=== PATIENT | female | born 1985 | race Caucasian/White ===

== ENCOUNTER 2024-11-08 14:40 | Outpatient (CLI) | payer BC, SELFPAY ==
[2024-11-09 00:46] LABS: Chlamydia DNA Amplified* NOT DETECTED (No Detected); GC DNA Amplified* NOT DETECTED (No Detected)
[2024-11-10 06:30] LABS: HPV Source Cervix; HPV, High Risk by TMA Not Detected
[2024-11-25 14:21] LABS: Pap Test Reviewed by Path Done
== END 2024-11-08 14:41 | disposition home or self-care (01) ==
PROVIDERS: Visit Provider Physician Assistant Medical
DX: R73.03 Prediabetes (principal); R51.9 Headache, unspecified; R53.83 Other fatigue; Z11.3 Encounter for screening for infections with a predominantly sexual mode of transmission; Z12.4 Encounter for screening for malignant neoplasm of cervix
CPT/HCPCS: 87491; 87591; 87624; 87625; 88141; 88142

== ENCOUNTER 2024-11-11 09:11 | Outpatient (CLI) | payer BC, SELFPAY | END 2024-11-11 09:12 | disposition home or self-care (01) | LOC: NFLDREF 11-15 19:14 | PROVIDERS: Visit Provider Physician Assistant Medical | DX: R73.03 Prediabetes (principal); R53.83 Other fatigue; Z13.6 Encounter for screening for cardiovascular disorders; Z13.21 Encounter for screening for nutritional disorder; Z13.0 Encounter for screening for diseases of the blood and blood-forming organs and certain disorders involving the immune mechanism; Z13.29 Encounter for screening for other suspected endocrine disorder | CPT/HCPCS: 80053; 80061; 82306; 82728; 84443 ==

== ENCOUNTER 2025-01-13 15:19 | Outpatient (CLI) | payer BC, SELFPAY | END 2025-01-13 15:20 | disposition home or self-care (01) | LOC: LKVREF 15:20 | PROVIDERS: Visit Provider Physician Assistant Medical | DX: R79.89 Other specified abnormal findings of blood chemistry (principal) | CPT/HCPCS: 80076 ==

== ENCOUNTER 2025-02-15 18:06 | Outpatient (CLI) | payer BC, SELFPAY | END 2025-02-15 18:07 | disposition home or self-care (01) | DX: R10.13 Epigastric pain (principal) | CPT/HCPCS: 80053; 83690 ==

== ENCOUNTER 2025-05-12 07:30 | Outpatient (RCR) | payer BC, SELFPAY ==
--- NOTE | 2025-03-24 08:51 | OT.OPOE ---
OT Outpatient Ortho Eval OT Outpatient Ortho Eval* Start: 03/24/25 07:28 Freq: Status: Active Protocol: Document 03/24/25 07:28 OSKAR (Rec: 03/24/25 08:49 DELONNoni [id number]) E-signed By Alice Mooney, OTR/L, CLT OT OP Ortho Eval Details Complexity Complexity Medium Insurance Information Insurance Blue Cross/Blue Shield Information Other Insurance [facility] History/Precautions Current Condition/Medical Diagnosis Referring Provider Dr. Jose Roberto Lind Medical Diagnoses M77.8 Other enthesopathies, not elsewhere classified ( Tendinitis of right triceps) M77.11 Lateral epicondylitis, right elbow G56.01 R UE Carpal Tunnel Syndrome Treatment Diagnosis Pain in R elbow, M25.521 Stiffness in R elbow, M25.621 Paresthesia R20.2 (R UE, median and ulnar nerve) Date of Onset December 2024 Other Conditions Medications: celecoxib 100 mg PO BID 60 caps 1RF (NEW, prescribed by Ortho doctor on 03/15/25) acetaminophen 1,000 mg PO Q6H PRN albuterol sulfate 90 mcg/actuation 2 puffs inhalation Q4-6H PRN bupropion HCl SR (Wellbutrin SR) 100 mg PO QAM ibuprofen 800 mg PO Q6H PRN metronidazole 0.75% applic topical DAILY phentermine 18.75 mg (1/2 x 37.5 mg) PO QDAY pregabalin 100 mg PO BID sulfacetamide sodium-sulfur 8-4 % topical triamcinolone acetonide 0.025% 1 applic topical QDAY Carpal tunnel syndrome, right (Acute) G56.01 - Carpal tunnel syndrome, right upper limb (ICD- 10) Tendinitis of right triceps (Acute) M77.8 - Other enthesopathies, not elsewhere classified (ICD-10) Lateral epicondylitis, right elbow (Acute) M77.11 - Lateral epicondylitis, right elbow (ICD-10) Chronic headaches (Acute) [facility]; chronic, Lyrica R51.9 - Headache, unspecified (ICD-10) G89.29 - Other chronic pain (ICD-10) Depression (Acute) [id number] bupropion 100 mg SR daily F32.A - Depression, unspecified (ICD-10) Fatigue (Acute) R53.83 - Other fatigue (ICD-10) Obesity (Acute) 11/08/2024- weight 231 lb. Start phentermine 01/13/2025-weight 223 lb. Continue phentermine 18.75 mg daily. 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 She presented to Ortho clinic on for evaluation right elbow pain which 1st developed in December 2024. She denies any history of injury. Since then, she has experienced progressively worsening elbow pain which she localizes to both the lateral & medial elbow (with lateral worse than medial) and posterior aspects of her R elbow (triceps tendon). She describes it as a throbbing and burning pain that is aggravated by all activities, generally stiff and sore upon waking up and worse as the day goes from everyday tasks . Treatment has consisted of using ice and taking ibuprofen or Tylenol on an as-needed basis. She has also tried massaging and home exercises for lateral epicondylitis. However, symptoms have continued to persist. Additionally, she has a history of numbness and tingling in her R dominant hand. The symptoms are present intermittently and will frequently wake her at night. She reportedly underwent EMG nerve conduction studies last year which confirmed diagnosis of right carpal tunnel syndrome. She has tried wearing a wrist brace, which has not provided significant improvement of her symptoms. Ortho provider wrote a script for celecoxib 100 mg PO BID 60 caps 1RF as of 03/15/25 but patient does not notice a significant improvement in her symptoms/pain levels with this added medication. Pain Assessment Pain Pain Yes Pain Comments 8/10 at the lateral R (dominant) elbow with a burning sensation at the R triceps insertion of the elbow 6/10 R UE medial Elbow 4-5/10 hagen side of the R wrist, more of a burning sensation Hand Pinch/City Controller Strength Hand Pinch/City Controller Strength Hand Pinch/City Controller Left Hand,Right Hand Strength Left Hand City Controller Strength 75 Position 1 in Elbow Flexion (lbs) City Controller Strength 70 Position 2 in Elbow Extension (lbs) Lateral Pinch 16 Strength (lbs) Three Point Pinch ( 16 lbs) Right Hand City Controller Strength 55 Position 1 in Elbow Flexion (lbs) City Controller Strength 0 Position 2 in Elbow Extension (lbs) Lateral Pinch 13 Strength (lbs) Three Point Pinch ( 14 lbs) Comments Comments Patient was unable to hold the dynamometer in the R UE with arm straight out, very painful Arm extended body welder strength was 0 Upper Extremity Special Tests Elbow Cozens Test Positive Right Tenosynovitis Wrist Finklestein Positive Right Test Median Nerve-Carpal Tunnel Wrist Phalen Test Positive Right Wrist Tinel Test Positive Right Ulnar Nerve Froment's Sign Positive Right Upper Extremity Special Tests Comments Comments Special Tests Maudsley?s test?= Resisted third digit extension (+ on the R UE) Cozen?s test?= Resisted wrist extension with radial deviation and full pronation (+ on the R UE) Chair lift test?= Lifting the back of a chair with a three-finger pinch (thumb, index long fingers) and the elbow fully extended (+ on the R UE) OT Problems Problems Problems Decreased Strength,Pain,Sensory Sensitivity,Lifting, Gripping,Pinching Problems Comments Burning sensation (feels hot along the back of the R arm, above the elbow) Other Problems Writing,Opening Containers,Dressing,Computer,Fasteners, Sleeping Patient Potential Good Assessment Assessment Assessment Patient is an excellent candidate for therapy, she was pleasant, alert, orientated, asked great questions in session, was an active listener to information presented to her and showed signs of motivation/ willingness to follow the presented protocol in POC. PLAN: lateral & Medial epicondylitis protocol, as well as carpal tunnel (R wrist) and triceps tendonitis. Therapist will treat patient's R (dominant) UE with Ultrasound, Ionto, Manual treatment (YARY), as well as develop an individualized home exercise program that progresses as patient is able to take on increased challenge and pain symptoms decrease. Therapist will provide patient education on biomechanics/ergonometric/ activity modifications to decrease flare-ups. Education topics discussed in todays session included: Explained to patient that relief of pain and recovery of the muscle and tendon strength can often take 6 months or even longer. Activity modifications: Minimize activities that involve repetitive hand and wrist motions, such as typing, gripping, or lifting. If you need to do receptive tasks, take breaks and stretch the arm out. Ice cup massaging 3-4x per day. Very important to be diligent on your home exercise program of stretching, icing and strengthening. This will include scapular stabilization exercises. Occupational Therapy Treatment Plan - OP Potential Rehabilitation Good Potential Barriers Barriers to goal Symptoms are now chronic, 3+ months attainment Patient has multiple problems at the R UE (triceps, lateral and medial epicondylitis, carpal tunnel and possible cubital tunnel as she describes burning and tingling in the little finger/ring finger which is the ulnar nerve). Set Goals Goals Set with Yes Patient Goals Goals 1. Patient will verbalize 3 activity modifications to decrease abusive/overloading of the tendons. - progressing, continue 2. Pt will demonstrate pain-free body welder and pinch strength comparable to the uninvolved side in order to improve functional grasp, hold, reach, and lifting ability needed to complete self-care, leisure tasks, and work activities. -progressing, continue 3. Through activity participation in skilled therapy sessions, and consistency in performing a customized HEP, patient will improve capacity of tendons and muscles to manage load in order to have less pain with ADLs, work, leisure activities and IADLs. -progressing, continue 4. From EVAL score on The Upper Extremity Functional Index (UEFI) patient will have a change in score by >9 points in order to show significant change in UE function. Target Date 12 weeks Treatment Plan Treatment Plan Evaluation,Edema Control,Iontophoresis with Dexamethasone Sodium Phosphate 1 mL (4mg per mL),Joint Mobilization,Manual Therapy,Ultrasound,Therapeutic Exercise,Therapeutic Activities,Self Care/Home Management,Education Expected Frequency 1-2x Week Expected Duration 12 Home Program Home Program Home Program Initiated Certification Certification Statement I Certify That: Therapy Services Provided,Therapy Plan Established, Therapy Plan Reviewed Certification Information Clinic ID # [id number] Initial 03/24/25 Certification Date Recertification Due 06/22/25 Date Provider Signature Yes Required Provider Signature POC & Medical Necessity Shows Agreement With Physician NPI Number Write NPI# Here Physician Comment/ Comment or Changes Change Physician Signature Please Sign/Date Here & Date Requested
== END 2025-07-14 14:53 | disposition home or self-care (01) ==
PROVIDERS: PCP Physician Assistant Medical; Visit Provider Orthopaedic Surgery
DX: M77.8 Other enthesopathies, not elsewhere classified (principal); M77.11 Lateral epicondylitis, right elbow; G56.01 Carpal tunnel syndrome, right upper limb; Z51.89 Encounter for other specified aftercare
CPT/HCPCS: 97035; 97110; 97140; 97166; X5282

== ENCOUNTER 2025-06-27 10:04 | Emergency (ER) | payer BC, SELFPAY ==
--- OUTSIDE RECORDS SUMMARY | 2025-06-27 10:17 | XMS_ITS | Clinical Summary ---
Author Organization [facility] Address [address] [place] [address] Care Team Providers Care Chronic Manager Name Role Phone Latoya, Primary Care Provider Unavailabl e Allergies No known active allergies Medications MICROGESTIN 1.5 ORAL i tab daily Active albuterol HFA (PROAIR HFA) 90 mcg/actuation inhalerIndicatio ns:Sinusitis Inhale 2 Puffs by mouth every 4 hours if needed. 1 Inhaler 0 03/23/2014 Active Social History Tobacco Use Types Packs/Day Years Used Date Smoking Tobacco: Never Smokeless Tobacco: Never Alcohol Use Standard Drinks/Week Comments No 0 (1 standard drink = 0.6 oz pur e alcohol) Comments Unknown Sex and Gender Information Value Date Recorded Sex Assigned at Not on file Legal Sex Female 7:29 AM CLINICAL MENTAL HEALTH COUNSELOR Gender Identity Not on file Sexual Orientation Not on file Obstetrics History Para Term AB IAB SAB Ectopic Multiple Livin g Live Births 1 Date Outcome GA Total Labor Labor/2nd/3rd Weight Sex Type Anes PTL Laly A1 A5 Name Clin Last Filed Vital Signs Vital Sign Reading Time Taken Comments Blood Pressure 116/78 03/23/2014 10:59 AM CDT Pulse 88 03/23/2014 10:59 AM CDT Temperature 36.3 C (97.4 F) 03/23/2014 10:59 AM CDT Respiratory Rate 18 03/23/2014 10:59 AM CDT Oxygen Saturation 98% 03/23/2014 10:59 AM CDT Inhaled Oxygen Concentration - - Weight 95.7 kg (211 lb) 03/23/2014 10:59 AM CDT Height 172.7 cm (5' 7.99) 03/23/2014 10:59 AM C DT Body Mass Index 32.09 03/23/2014 10:59 AM CDT Plan of Treatment Health Maintenance Due Date Last Done Comments Tetanus booster 11/14/1995 Depression screening for age 12+ 1996 HIV for age 15-65 11/14/1999 BMI (ht and wt on same day) for age 18+ 2002 Hepatitis C screening for ag e 18-79 2002 Hepatitis B series for 19+ ( 1 of 3 - 19+ 3-dose series) 11/14/2003 Pap test for age 21-65 2005 HPV series for age 9-45 (1 - 3-dose SCDM series) 11/14/2011 Influenza Vaccine (#1) 2025 RSV vaccine for adults or (1 - 1-dose 75+ series) 11/14/2059 Pneumococcal series for age 6-49 Aged Out No longer eligible based on patient's age to complete this topic [place] [address] [place] [address] Care Teams Chronic Manager Relationship Specialty Start Date End Date None, Dr Rivera PCP - General Unknown Physician Specialty 11/22/13
--- OUTSIDE RECORDS SUMMARY | 2025-06-27 10:17 | XMS_ITS | Encounter Summary ---
Author Organization [facility] Address [address] [place] [address] Care Team Providers Care Nuclear Powerplant Mechanic Helper Name Role Phone Scar Quinteros MD Primary Care Provide r Frw, None Unavailable Unavailable Tapan Marie MD Unavailable Unavailable Lola Anaya MD Primary Care Provider + [facility]- Primary Care Provider Encounter Details Date Type Department Care Team (Late st Contact Info) Description 04/01/2012 Records - [facility] - [address] [phone] Provider, Historical Social History Tobacco Use Types Packs/Day Years Used Date Smoking Tobacco: Never Alcohol Use Standard Drinks/Week Comments Yes 0 (1 standard drink = 0.6 oz pur e alcohol) rare Comments No Sex and Gender Information Value Date Recorded Sex Assigned at Not on file Legal Sex Female 4:14 AM INSPECTOR HOT FORGINGS Gender Identity Not on file Sexual Orientation Not on file 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 Not on file Not on file Not on muna e documented as of this encounter Plan of Treatment Not on file documented as of this encounter Visit Diagnoses Not on filedocumented in this encounter Care Teams Nuclear Powerplant Mechanic Helper Relationship Specialty Start Date End Date Scar Quinteros MD PCP - General 08/26/00 07/21/17 Frw, None PCP - Obstetrics/Gynecology 08/26/00 Tapan Marei MD XXX RETIRED XXX [address] [place] [address] PCP - Orthopaedics 08/26/00 Lola Anaya MD XXX RETIRED XXX [address] [place] [address] PCP - General physical therapy aid 07/22/17 06/09/19 [facility]- [address], [place] [address] PCP - General 06/10/19 documented as of this encounter
--- OUTSIDE RECORDS SUMMARY | 2025-06-27 10:17 | XMS_ITS | Encounter Summary ---
Author Organization [facility] Address [address] [address] Care Team Providers Care Director Validation Name Role Phone Unassigned, Provider Primary Care Provider Unava ilable Encounter Details Date Type Department Care Team (Late st Contact Info) Description 04/03/2012 Consent for Procedure/Treatme [facility] Operating Room [address] [place] [address] Cullen Matthew MD [address] [facility] [address] [place] [address] CONSENT FOR ANESTHESIA Social History Tobacco Use Types Packs/Day Years Used Date Smoking Tobacco: Never Smokeless Tobacco: Never Alcohol Use Standard Drinks/Week Comments Yes 0 (1 standard drink = 0.6 oz pur e alcohol) 1-2 month Comments Unknown Sex and Gender Information Value Date Recorded Sex Assigned at Not on file Legal Sex Female 6:30 AM CDT Gender Identity Not on file Sexual Orientation Not on file documented as of this encounter Progress Notes * Cullen Matthew MD - 04/03/2012 12:00 AM CDT documented in this encounter Plan of Treatment Not on file documented as of this encounter Visit Diagnoses Not on filedocumented in this encounter Care Teams Director Validation Relationship Specialty Start Date End Date Unassigned, Provider [address] [place] [address] PCP - General Unknown Physician Specialty 04/03/12 documented as of this encounter
--- OUTSIDE RECORDS SUMMARY | 2025-06-27 10:17 | XMS_ITS | Clinical Summary ---
Author Organization [facility] Address [address] [place] [address] Care Team Providers Care Electrical Instrumentation Technician Name Role Phone Frw, None Unavailable Unavailable Tapan Marie MD Unavailable Unavailable [facility]- Primary Care Provider Allergies No known active allergies Medications cyclobenzaprine (FLEXERIL) 10 MG tablet Take 1 tablet (10 mg) by mouth 3 times daily as needed for muscle spasms 12 tablet 07/22/2017 Active Active Problems Problem Noted Date Diagnosed Date Sprain of lumbar region 01/20/2004 Overview (01/20/2004): 01/06/2004 LB strain with Lt LE radicular pain: WC @ [facility] Displacement of lumbar inter vertebral disc without myelopathy 08/17/2002 Overview (02/03/2004): L5-S1 HNP to Lt, L4-5 central HNP Irregular menses Overview (09/29/2008): Dr. Malone Resolved Problems Problem Noted Date Diagnosed Date Resolved Date Chorioamnionitis 06/29/2014 06/13/2016 Delivery normal 06/29/2014 06/13/2016 Immunizations Immunization Administration Dates Next Due DT (PEDS <7y) 03/23/1997 Historical DTP/aP 03/04/1990,02/02/1988,05/04/19 85,02/01/1985,01/02/1985 MMR (MMRII) 03/23/1997,02/23/1986 OPV, trivalent, live 03/04/1990,02/02/1988,05/04,02/01/1985,01/02/1985 TD,PF 7+ (Tenivac) 08/04/2000 Family History Medical History Relation Comments Alcohol/Drug Maternal Grandfather Arthritis Maternal Grandfather Arthritis Maternal Grandmother Cerebrovascular Disease Maternal Grandmother Depression Maternal Grandmother Diabetes Maternal Grandmother Obesity Maternal Grandmother Cancer Other 1 great maternal g randmother Breast Cancer Other 2 great grandmothe r Alcohol/Drug Paternal Grandfather Arthritis Paternal Grandfather Arthritis Paternal Grandmother Allergies No family hx of Alzheimer Disease No family hx of Anesthesia Reaction No family hx of Blood Disease No family hx of C.A.D. No family hx of Cancer - colorectal No family hx of Cardiovascular No family hx of Circulatory No family hx of Congenital Anomalies No family hx of Connective Tissue Disorder No family hx of EYE* No family hx of Eye Disorder No family hx of Gastrointestinal Disease No family hx of Genetic Disorder No family hx of Genitourinary Problems No family hx of Gynecology No family hx of Heart Disease No family hx of Hypertension No family hx of Lipids No family hx of Musculoskeletal Disorder No family hx of Neurologic Disorder No family hx of Osteoporosis No family hx of Prostate Cancer No family hx of Psychotic Disorder No family hx of Respiratory No family hx of Thyroid Disease No family hx of Relation Status Comments Brother Alive x1 Father Alive Maternal Grandfather Alive Maternal Grandmother Mother Alive Other 1 Other 2 Paternal Grandfather Alive Paternal Grandmother Alive Sister Alive x2 Social History Tobacco Use Types Packs/Day Years Used Date Smoking Tobacco: Never Smokeless Tobacco: Never Alcohol Use Standard Drinks/Week Comments Yes 0 (1 standard drink = 0.6 oz pur e alcohol) rare Adolescent Education Answer Date Record ed Getting School Help Needed Not on file 05/11 Comments No Sex and Gender Information Value Date Recorded Sex Assigned at Not on file Legal Sex Female 4:14 AM FLIGHT MANAGER Gender Identity Not on file Sexual Orientation Not on file 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 Not on file Not on muna e Last Filed Vital Signs Vital Sign Reading Time Taken Comments Blood Pressure 137/83 06/10/2019 10:26 AM FLIGHT MANAGER Pulse 90 06/10/2019 10:26 AM FLIGHT MANAGER Temperature 37 C (98.6 F) 06/10/2019 10:26 AM FLIGHT MANAGER Respiratory Rate 16 06/10/2019 10:26 AM FLIGHT MANAGER Oxygen Saturation 99% 06/10/2019 10:26 AM FLIGHT MANAGER Inhaled Oxygen Concentration - - Weight 90.7 kg (200 lb) 06/10/2019 10:26 AM FLIGHT MANAGER Height 172.7 cm (5' 8) 06/10/2019 10:26 AM FLIGHT MANAGER Body Mass Index 30.41 06/10/2019 10:26 AM FLIGHT MANAGER Plan of Treatment Not on file [place] [facility] OTHER [facility] [employer] Care Teams Electrical Instrumentation Technician Relationship Specialty Start Date End Date Frw, None PCP - Obstetrics/Gynecology 08/26/00 Tapan Marie MD XXX RETIRED XXX [address] [place] [address] PCP - Orthopaedics 08/26/00 [facility]- [address] [place] [address] PCP - General 06/10/19
--- OUTSIDE RECORDS SUMMARY | 2025-06-27 10:17 | XMS_ITS | Clinical Summary ---
Author Organization [facility] Address [address], [place] [address] Care Team Providers Care Floor Covering Printer Name Role Phone Unassigned, Provider Primary Care Provider Unava ilable Source Comments You are receiving this document as you are listed as the primary care provider,follow-up provider, or the patient has been referred to you for consultation.This is in compliance with the Medicare and[facility] Hospital[employer] EHR Incentive Program,which states Providers who transition their patient to another setting of careor provider of care or refers their patient to another provider of care shouldprovide summary care record for each transition of care or referral. [employer] Allergies Active Allergy Reactions Criticality Noted Date Comments Other Rash 04/03/2012 Adhesives Medications penicillin V potassium (AKA PEN VEE K) 500 MG tablet Take 500 mg by mouth two times a day. Reported on 08/09/2016 Active ibuprofen (AKA MOTRIN) 600 MG tablet Take 600 mg by mouth every 6 hours as needed for Pain. Reported on 08/09/2016 Active HYDROcodone-ac etaminophen (AKA VICODIN,LORTAB ) 5-500 MG tablet Take 1-2 Tabs by mouth every 6 hours as needed for Pain. Do not take more than 8 tablets in 24 hours. 15 Tab 0 1 Active Additional Information Patient not taking.Reported on 08/09/2016 famotidine (AKA PEPCID) 20 MG tablet Take 20 mg by mouth two times a day. Active Digestive Enzymes (MULTI-ENZYME) Take 1 Cap by mouth daily. Reported on 08/09/2016 Active oxyCODONE-acet aminophen (AKA PERCOCET) 5-325 MG tablet Take 1-2 Tabs by mouth every 4 hours as needed for Pain. Max acetaminophen is 4 grams per 24 hours 30 Tab 0 2 Active Additional Information Patient not taking.Reported on 08/09/2016 ibuprofen (AKA MOTRIN) 600 MG tablet Take 1 Tab by mouth every 8 hours as needed for Pain. Max ibuprofen is 3200 mg per 24 hours 30 Tab 0 2 Active VIT-FE FUMARATE-FA OR Activ e Active Problems No known active problems Social History Tobacco Use Types Packs/Day Years Used Date Smoking Tobacco: Never Smokeless Tobacco: Never Alcohol Use Standard Drinks/Week Comments Yes 0 (1 standard drink = 0.6 oz pur e alcohol) on Week-ends socially Comments Unknown Sex and Gender Information Value Date Recorded Sex Assigned at Not on file Legal Sex Female 6:30 AM CDT Gender Identity Not on file Sexual Orientation Not on file Last Filed Vital Signs Vital Sign Reading Time Taken Comments Blood Pressure 110/70 08/09/2016 2:42 PM WRIST CLOSER Pulse 92 04/03/2012 1:26 PM CDT Temperature 36.9 C (98.4 F) 08/09/2016 2:42 PM WRIST CLOSER Respiratory Rate 16 04/03/2012 1:26 PM CDT Oxygen Saturation 99% 04/03/2012 1:26 PM CDT Inhaled Oxygen Concentration - - Weight 86.2 kg (190 lb) 04/03/2012 6:35 AM CDT Height 172.7 cm (5' 8) 04/03/2012 6:35 AM CDT Body Mass Index 28.89 04/03/2012 6:35 AM CDT Plan of Treatment Health Maintenance Due Date Last Done Comments Cervical Cancer Screening Due 1984 Hep C Screening (Preventive Services) 1984 Mammogram 1984 HIV Screening (Preventive Services) 2000 Adult Preventive Visit 2002 DTaP/Tdap/Td Vaccine (1 - Tdap) 11/14/2003 HepB Vaccine (1) 11/14/2003 HPV Vaccine (1 - 3-dose SCDM series) 11/14/2011 COVID-19 Vaccine ( - 2024-2 6 season) 2025 Influenza Vaccine (#1) 2025 Zoster/Shingles Vaccine (1 of 2) 2034 HepA Vaccine Aged Out No longer eligi ble based on patient's age to complete this topic Hib Vaccine Aged Out No longer eligi ble based on patient's age to complete this topic IPV (Polio) Vaccine Aged Out No longe r eligible based on patient's age to complete this topic MCV4 Vaccine Aged Out No longer eligi ble based on patient's age to complete this topic Meningococcal B Vaccine Aged Out No l onger eligible based on patient's age to complete this topic Pneumococcal Vaccine Aged Out No long er eligible based on patient's age to complete this topic Advance Directives * Full Code (Latest Code Status on File) Date Activated Date Inactivated Comments 04/03/2012 8:42 AM 04/03/2012 4:11 PM * Full Code Date Activated Date Inactivated Comments 04/03/2012 6:05 AM 04/03/2012 8:42 AM Care Teams Floor Covering Printer Relationship Specialty Start Date End Date Unassigned, Provider [address] [place] [address] PCP - General Unknown Physician Specialty 04/03/12
--- OUTSIDE RECORDS SUMMARY | 2025-06-27 10:17 | XMS_ITS | Encounter Summary ---
Author Organization [facility] Address [address], [place] [address] Care Team Providers Care [facility] [employer] [facility] Manager Name Role Phone Unassigned, Provider Primary Care Provider Unava ilable Encounter Details Date Type Department Care Team (Late st Contact Info) Description 04/03/2012 Consent for Procedure/Treatme [facility] Operating Room [address] [place] [address] Cullen Matthew MD [address] [address] CONSENT FOR PROCEDURE Social History Tobacco Use Types Packs/Day Years [...] on filedocumented in this encounter Care Teams [employer] Manager Relationship Specialty Start Date End Date Unassigned, Provider [address] [place] [address] PCP - General Unknown Physician Specialty 04/03/12 documented as of this encounter
[2025-06-27 10:37] VITALS: BP 137/90; PULSE 91; RESP 20; TEMP 36.3; O2SAT 95; BMI 32.9
--- NOTE | 2025-06-27 10:59 | CRLHL7_ITS ---
For Patients: As a result of the Century Cures Act, medical imaging exams and procedure reports are released immediately into your electronic medical record. You may view this report before your referring provider. If you have questions, please contact your health care provider. INDICATION: Fall, vertigo TECHNIQUE: Noncontrast axial CT of the head. Coronal and sagittal reformats. Bone and soft tissue algorithms. COMPARISON: None. FINDINGS: The ventricles and cortical sulci appear age-appropriate. No midline shift or mass effect. No acute intracranial hemorrhage or extra-axial fluid collection. Corrales-white matter differentiation is grossly maintained. White matter attenuation is within normal limits. Intracranial vessels are unremarkable for technique. Midline structures are unremarkable. The calvarium appears grossly intact. Paranasal sinuses and mastoid air cells are clear. Orbits are unremarkable. IMPRESSION: 1. No skull fracture or acute intracranial hemorrhage identified. Please note that all CT scans at this facility use dose modulation, iterative reconstruction, and/or weight-based dosing when appropriate to reduce radiation dose to as low as reasonably achievable. Dictated by Shira Vallecillo MD @ 06/27/2025 11:32:44 AM (Electronically Signed)
--- NOTE | 2025-06-27 11:14 | ED.GENADULT ---
HPI - General Adult General Chief complaint: Dizziness/Vertigo Stated complaint: Vertigo Time Seen by Provider: 06/27/25 10:41 Source: patient Mode of arrival: ambulatory Limitations: no limitations History of Present Illness HPI narrative: 39-year-old female presenting today with dizziness. Patient states she woke up yesterday feeling very dizzy, like the room was spinning or like she was ?on a boat?. She states that she is able to lay down flat in her symptoms are better but the moment she sits up or stands her symptoms return. She states that she cannot turn to the left cuts that makes her symptoms significantly better. She feels unsteady on her feet. She complains of tingling in the right hand which is postop tendon repairs on that side. She complains of bilateral jaw pain that also started yesterday. She denies any chest pain or shortness of breath. No diaphoresis. She feels very nauseated, has had some dry heaving. She denies any vision changes. She states that her hearing seems muffled when she is in areas with a lot of people. She denies any recent illness. She states that today her symptoms are not any better. She has been taking Dramamine at home which does help. When she is lying down and she closes her eyes, her symptoms do subside sometimes but not all the time. Related Data Home Medications ?Medication ?Instructions ?Recorded ?Confirmed metronidazole 0.75 % topical cream applic topical DAILY 01/13/25 06/08/25 sulfacetamide sodium-sulfur 8 %-4 topical 01/13/25 06/08/25 % topical suspension acetaminophen 500 mg capsule 1,000 mg PO Q6H PRN 03/15/25 06/08/25 ibuprofen 200 mg tablet 800 mg PO Q6H PRN 03/15/25 06/27/25 Previous Rx's ?Medication ?Instructions ?Recorded triamcinolone acetonide 0.025 % 1 applic topical QDAY #80 grams 05/30/22 topical cream albuterol sulfate 90 mcg/actuation 2 puff inhalation Q4-6H PRN 10/28/23 aerosol inhaler shortness of breath or wheezing #8.5 grams bupropion HCl 100 mg tablet,12 hr 100 mg PO QAM #90 tabs 04/28/25 sustained-release (Wellbutrin SR) phentermine 37.5 mg tablet 18.75 mg (1/2 x 37.5 mg) PO BID 04/28/25 #90 tabs pregabalin 100 mg capsule 100 mg PO BID #180 caps 05/04/25 ondansetron HCl 4 mg tablet 4 mg PO TID PRN nausea and 06/27/25 vomiting #10 tabs Allergies Allergy/AdvReac Type Severity Reaction Status Date / Time dog dander Allergy Severe Rash Verified 06/08/25 09:36 adhesive Allergy Mild Unknown Verified 06/08/25 09:36 Cat hair Allergy Severe Rash Uncoded 06/08/25 09:36 Review of Systems Status of ROS: Reports: 10 or more systems reviewed and unremarkable except as noted in History and below [facility] Medical History History of 1 ?Z87.59 - Personal history of other complications of , childbirth and the puerperium (ICD-10) History of miscarriage ?Z87.59 - Personal history of other complications of , childbirth and the puerperium (ICD-10) Obesity ?E66.9 - Obesity, unspecified (ICD-10) Pre-diabetes ?R73.03 - Prediabetes (ICD-10) Surgical History Hx of wisdom tooth extraction ?K08.409 - Partial loss of teeth, unspecified cause, unspecified class (ICD-10) History of surgery on wrist ?Z98.890 - Other specified postprocedural states (ICD-10) History of spinal surgery ?Z98.890 - Other specified postprocedural states (ICD-10) History of sinus surgery ?Z98.890 - Other specified postprocedural states (ICD-10) History of laser assisted in situ keratomileusis ?Z98.890 - Other specified postprocedural states (ICD-10) History of cholecystectomy ?Z90.49 - Acquired absence of other specified parts of digestive tract (ICD-10) History of section ?Z98.891 - History of uterine scar from previous surgery (ICD-10) Family History Maternal Grandmother Coronary artery disease Stroke Diabetes Depression Sister Seizure disorder Father Cardiovascular disease Uncle Melanoma Sister Colon cancer, Onset Age: 49 Addiction Alcohol dependence Social History Narrative: Single. Has 2 children ages 8 and 10. Partner has had a vasectomy. 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 Non-smoker rarely/occasional consumes alcohol occasional marijuana What is your current living situation?: I presently have a place to live In the past 12 months, utilities in danger of being shut off: no In past 12 months, lack of transportation kept you from medical appts, meetings, work, or getting things needed for daily living: no In the past 12 mos, have been you worried that your food would run out before you had money to buy more?: never true In the past 12 mos, the food you bought just didn't last and you didn't have money to buy more?: never true Smoking Status: Never smoker How often does anyone, including family, friends and others, physically hurt you: never How often does anyone, including family, friends and others, insult or talk down to you: sometimes How often does anyone, including family, friends and others, threaten you with harm: never How often does anyone, including family, friends and others, scream or curse at you: sometimes Health Related Social Needs: Other personal risk factors, not elsewhere classified (Z91.89) Exam Narrative: Exam Narrative: Well-nourished well-developed patient, appears uncomfortable. Alert and oriented. Answers questions appropriately. Mood and affect are appropriate. Thoughts are goal oriented and rational. Patient speaks in full sentences without needing to catch her breath. HEENT: Normocephalic atraumatic. Pupils are equally round reactive to light. Extraocular muscles are intact. Conjunctivae are moist without any icterus noted. Moist mucous membranes. Posterior pharynx is normal. Cardiovascular: Heart is regular rate and rhythm S1 and S2 are present without any murmurs. Lungs: Clear to auscultation bilaterally no wheezes rhonchi or rales are appreciated. Patient takes deep breaths without any discomfort. Extremities: Bilateral lower extremities are without edema. Skin: Well perfused without any obvious rashes. Strength is 5/5 of the upper and lower extremities. Patient cannot mining helper with the right hand secondary to splint. Reflexes are 2+ and symmetric at the knees. Cranial nerves 3-12 are normal. [id number]-lh-[id number] is normal. There is no nystagmus either horizontally or vertically. HINTS exam is unremarkable. Const: Vital Signs, click to edit/add: Vital Signs - 24 hr 06/27/25 10:37 06/27/25 12:30 Temperature 97.4 F L Pulse Rate [Pulse Oximeter] 91 86 Respiratory Rate 20 16 Blood Pressure [Ri ght Upper Arm] 137/90 H 118/76 Pulse Oximetry 95 98 Oxygen Delivery Me thod Room Air Course Course ED Course: Discussed with neurologist, Dr. Sanchez, with Soila Xavier who recommended head CT and head and neck CTA. Given her other symptoms we also did an EKG which showed normal sinus rhythm with a pulse of 68. Blood work was unremarkable. Imaging was unremarkable. Preliminary reads of the head and neck CTA were normal. Patient was treated with a L of normal saline IV Valium. It did seem to help a little bit although she still felt that she was on a boat. Vital Signs Vital signs: Initial Vital Signs Temperature 97.4 F L 06/27/25 10:37 Temperature Source Temporal Artery Scan 06/27/25 10:37 Pulse Rate 91 06/27/25 10:37 Respiratory Rate 20 06/27/25 10:37 Blood Pressure 137/90 H 06/27/25 10:37 Blood Pressure Mean 105 06/27/25 10:37 Blood Pressure Position Sitting 06/27/25 10:37 Pulse Oximetry 95 06/27/25 10:37 Oxygen Delivery Method Room Air 06/27/25 10:37 Vital Signs Temperature 97.4 F L 06/27/25 10:37 Pulse Rate 91 06/27/25 10:37 Respiratory Rate 20 06/27/25 10:37 Blood Pressure 137/90 H 06/27/25 10:37 Pulse Oximetry 95 06/27/25 10:37 Oxygen Delivery Method Room Air 06/27/25 10:37 Temperature 97.4 F L 06/27/25 10:37 Pulse Rate 86 06/27/25 12:30 Respiratory Rate 16 06/27/25 12:30 Blood Pressure 118/76 06/27/25 12:30 Pulse Oximetry 98 06/27/25 12:30 Oxygen Delivery Method Room Air 06/27/25 10:37 Medications Administered Medications: Discontinued Medications Generic Name Dose Route Start Last Admin Trade Name Freq PRN Reason Stop Dose Admin Diazepam 5 mg 06/27/25 10:59 06/27/25 11:44 Diazepam 5 Mg/Ml Inj IV 06/27/25 11:00 5 mg ONCE ONE Administration Sodium Chloride 1,000 mls @ 1,000 mls/hr 06/27/25 11:00 06/27/25 13:05 0.9 % Sodium Chloride 1000 Ml IV 06/27/25 11:59 Infused .Q1H CHINO Infusion Ondansetron HCl 4 mg 06/27/25 11:01 06/27/25 11:44 Ondansetron 2 Mg/Ml Inj IVP 06/27/25 11:02 4 mg ONCE ONE Administration Medical Decision Making MDM Narrative Medical decision making narrative: 39-year-old female with vertigo. Also patient home with Dickson, she has a trauma mean. We discussed Anamaria maneuver, physical therapy and follow up with primary care. Lab Data Lab results reviewed: Yes I reviewed the patient's lab results Labs: Lab Results 06/27/25 Range/Units 11:10 WBC 10.22 (4.50-11.00) K/uL RBC 5.14 (4.00-5.20) m/uL Hgb 15.1 (12.0-16.0) gm/dL Hct 44.6 (33.0-51.0) % MCV 87 (80-100) fL MCH 29 (26-34) pg MCHC 34 (32-36) gm/dL RDW Coeff of Alvin 12.6 (11.5-15.5) % Plt Count 364 (140-440) K/uL Neut % (Auto) 71.0 (42.0-72.0) % Lymph % (Auto) 20.0 (20-44) % Levy % (Auto) 6.0 (0.0-11.0) % Eos % (Auto) 2.4 (0.0-7.0) % Baso % (Auto) 0.4 (0.0-3.0) % Neut # (Auto) 7.26 H (1.7-7.0) K/uL Lymph # (Auto) 2.04 (0.90-2.90) K/uL Levy # (Auto) 0.60 (0.00-0.90) K/UL Eos # (Auto) 0.25 (0.00-0.50) K/uL Baso # (Auto) 0.04 (0.00-0.30) K/uL Abs Immat Gran (auto) 0.02 (0.00-0.30) K/uL Imm/Tot Granulo (auto) 0.2 % Sodium 138 (135-149) mmol/L Potassium 4.3 (3.6-5.1) mmol/L Chloride 103 (96-114) mmol/L Carbon Dioxide 23 (20-32) mmol/L Anion Gap 12 (7-15) mEq/L BUN 15 (5-24) mg/dL Creatinine 0.7 (0.5-1.5) mg/dL Estimated Creat Clear 103.89 Estimated GFR 112 ml/min Glucose 115 (60-115) mg/dL Lactate 1.1 (0.5-1.9) mmol/L Calcium 9.7 (8.4-10.6) mg/dL Magnesium 1.9 (1.5-2.6) mg/dL Total Bilirubin 0.5 (0.1-1.5) mg/dL Direct Bilirubin 0.2 (0.0-0.5) mg/dL AST 23 (12-35) U/L ALT 27 (4-35) U/L Alkaline Phosphatase 36 L (40-150) U/L Troponin I < 0.01 (0.01-0.04) ng/mL C-Reactive Protein < 0.5 L (0.5-1.0) mg/dL Total Protein 7.8 (6.0-8.3) g/dL Albumin 4.6 (3.3-5.0) g/dL Imaging Data CT scan - head: Attestation: I have reviewed the pertinent imaging results. Radiologist's impression: TECHNIQUE: Noncontrast axial CT of the head. Coronal and sagittal reformats. Bone and soft tissue algorithms. COMPARISON: None. FINDINGS: The ventricles and cortical sulci appear age-appropriate. No midline shift or mass effect. No acute intracranial hemorrhage or extra-axial fluid collection. Corrales-white matter differentiation is grossly maintained. White matter attenuation is within normal limits. Intracranial vessels are unremarkable for technique. Midline structures are unremarkable. The calvarium appears grossly intact. Paranasal sinuses and mastoid air cells are clear. Orbits are unremarkable. IMPRESSION: 1. No skull fracture or acute intracranial hemorrhage identified. ECG Data Attestation: I personally reviewed and interpreted this ECG as follows: Discharge Plan Discharge Clinical Impression: Vertigo Patient Disposition: Home, Self-Care Condition: Stable Instructions: Vertigo (ED) Prescriptions: New ondansetron HCl 4 mg tablet 4 mg PO TID PRN (Reason: nausea and vomiting) Qty: 10 0RF No Action albuterol sulfate 90 mcg/actuation HFA aerosol inhaler 2 puff inhalation Q4-6H PRN (Reason: shortness of breath or wheezing) Qty: 8.5 0RF phentermine 37.5 mg tablet 18.75 mg PO BID Qty: 90 0RF Rx Instructions: 1/2 tablet twice daily for weight management administer 30 minutes before or 1-2 hours after breakfast bupropion HCl [Wellbutrin SR] 100 mg tablet sustained-release 12 hr 100 mg PO QAM Qty: 90 1RF triamcinolone acetonide 0.025 % cream 1 applic topical QDAY Qty: 80 0RF metronidazole 0.75 % cream topical DAILY sulfacetamide sodium-sulfur 8-4 % suspension topical ibuprofen 200 mg tablet 800 mg PO Q6H PRN acetaminophen 500 mg capsule 1,000 mg PO Q6H PRN pregabalin 100 mg capsule 100 mg PO BID Qty: 180 0RF Follow Up/Referrals: Steph Pérez PA-C [Primary Care Provider, Family Practice] Stand Alone Forms: [employer] Info Instructions
[2025-06-27 11:16] LABS: Lactate* 1.1 mmol/L (0.5-1.9)
[2025-06-27] MEDS: ONDANSETRON 2 MG/ML inj 4 MG IVP (11:44)
[2025-06-27] MEDS: diazePAM 5 MG/ML inj IV (11:44)
--- NOTE | 2025-06-27 11:45 | CRLHL7_ITS ---
For Patients: As a result of the Century Cures Act, medical imaging exams and procedure reports are released immediately into your electronic medical record. You may view this report before your referring provider. If you have questions, please contact your health care provider. INDICATION: Vertigo. TECHNIQUE: CTA head using intravenous contrast with bolus tracking, 3D angiographic rendering using maximum intensity projection (MIP) and images permanently archived. CTA neck using intravenous contrast with bolus tracking, 3D angiographic rendering using maximum intensity projection (MIP) and images permanently archived. FINDINGS: CTA head: There is normal opacification of the intracranial vasculature. There is no large vessel occlusion or significant intracranial stenosis. No aneurysm is identified. CTA neck: There is no significant carotid artery stenosis or dissection. There is no significant vertebral artery stenosis or dissection. IMPRESSION: Unremarkable head CTA. Unremarkable neck CTA. Please note that all CT scans at this facility use dose modulation, iterative reconstruction, and/or weight-based dosing when appropriate to reduce radiation dose to as low as reasonably achievable. Dictated by Mir Claros MD @ 06/27/2025 5:26:00 PM (Electronically Signed)
[2025-06-27 11:48] LABS: Hematocrit* 44.6 % (33.0-51.0); Hemoglobin* 15.1 gm/dL (12.0-16.0); Immature Granulocytes Abs Auto 0.02 K/uL (0.00-0.30); Immature Granulocytes Pct Auto 0.2 %; Lymphocytes Absolute Auto 2.04 K/uL (0.90-2.90); Mean Corpuscular HGB Conc 34 gm/dL (32-36); Mean Corpuscular Hemoglobin 29 pg (26-34); Mean Corpuscular Volume 87 fL (80-100); RDW Coefficient of Variation % 12.6 % (11.5-15.5); Red Blood Count* 5.14 m/uL (4.00-5.20); White Blood Count* 10.22 K/uL (4.50-11.00)
[2025-06-27 11:50] LABS: Slide Review Reflex No
[2025-06-27 12:16] LABS: Albumin* 4.6 g/dL (3.3-5.0); Chloride* 103 mmol/L (96-114)
[2025-06-27 12:17] LABS: Potassium* 4.3 mmol/L (3.6-5.1); Sodium* 138 mmol/L (135-149)
[2025-06-27 12:19] LABS: Blood Urea Nitrogen* 15 mg/dL (5-24); Creatinine* 0.7 mg/dL (0.5-1.5); Est. Creatinine Clearance* 103.89; Estimated Glomerular Filt Rate 112 ml/min
[2025-06-27 12:20] LABS: Alanine Aminotransferase* 27 U/L (4-35); Alkaline Phosphatase* 36 U/L (40-150); Anion Gap 12 mEq/L (7-15); Aspartate Amino Transferase* 23 U/L (12-35); Bilirubin Direct* 0.2 mg/dL (0.0-0.5); Bilirubin Total* 0.5 mg/dL (0.1-1.5); Calcium* 9.7 mg/dL (8.4-10.6); Carbon Dioxide* 23 mmol/L (20-32); Glucose* 115 mg/dL (60-115); Total Protein* 7.8 g/dL (6.0-8.3)
[2025-06-27 12:30] VITALS: BP 118/76; PULSE 86; RESP 16; O2SAT 98
== END 2025-06-27 13:31 | disposition home or self-care (01) ==
PROVIDERS: Emergency Provider Family Medicine; PCP Physician Assistant Medical
DX: R42 Dizziness and giddiness (principal)
CPT/HCPCS: 36415; 70450; 70496; 70498; 80048; 80076; 83605; 83735; 84484; 85025; 86140; 93005; 96361; 96374; 96375; 99284; 99285; J2405; J3360; J7030; Q9967